=== PATIENT | male | born 1970 | race African-American/Black ===

== ENCOUNTER 2019-03-27 07:22 | Emergency (ER) | payer BC, MEDICAID ==
[~2019-03-27] VITALS: Ht 175.3 cm; Wt 75.0 kg
[2019-03-27] MEDS ORDERED: SODIUM CHLORIDE 0.9% 1,000 ML IV ONE (08:36)
[2019-03-27 09:19] LABS: CHLORIDE 109 mEq/L (98-107)
[2019-03-27 09:24] LABS: ETHANOL BLOOD < 10 mg/dL
[2019-03-27 09:31] LABS: HEMATOCRIT. 48.5 % (42.0-52.0); HEMOGLOBIN. 16.3 g/dL (14.0-18.0); MEAN CORPUSCULAR HEMOGLOBIN 30.6 pg (28.0-32.0); MEAN PLATELET VOLUME 8.2 fl (7.4-10.4); PLATELET 183 x1000/uL (130-400); RED BLOOD CELL COUNT 5.33 mill/uL (4.7-6.1); RED CELL DISTRIBUTION WIDTH 14.3 % (11.6-14.6)
[2019-03-27 10:18] LABS: PLATELET ESTIMATE NORMAL
[2019-03-27 16:53] VITALS: BP 136/91
== END 2019-03-27 16:50 | disposition home or self-care (01) ==
LOC: ER 07:41
DX: G40.909 Epilepsy, unspecified, not intractable, without status epilepticus (principal); Z98.890 Other specified postprocedural states; Z87.828 Personal history of other (healed) physical injury and trauma
CPT/HCPCS: 36415; 70450; 71045; 80053; 80320; 84484; 85025; 93005; 99284; J7030; G0480